=== PATIENT | female | born 1950 | race Caucasian/White ===

== ENCOUNTER 2024-04-26 12:58 | Observation (INO) | payer MEDICARE ==
[2024-04-26] MEDS: PANTOPRAZOLE 40 MG/10 ML VIAL IVP STA (14:24)
[2024-04-26] MEDS: ONDANSETRON 4 MG/2 ML VIAL IVP STA (14:31)
[2024-04-26] MEDS: HYDROmorphone 0.5 MG/0.5 ML SYRINGE IVP STA (14:37)
[2024-04-26 14:38] LABS: Basophils % (A) 0 %; Eosinophils # (A) 0.1 k/uL (0-0.7); Eosinophils % (A) 1 %; HCT 42.6 % (34.0-46.0); HGB 14.5 gm/dL (11.4-16.0); Lymphocytes # (A) 1.5 k/uL (1.0-4.8); Lymphocytes % (A) 15 %; MCH 30.9 pg (25.0-35.0); MCHC 34.1 g/dL (31.0-37.0); MCV 90.6 fL (80.0-100.0); Mean Platelet Volume 9.9; Monocytes # (A) 0.5 k/uL (0-1.0); Monocytes % (A) 5 %; Neutrophils # (A) 7.4 k/uL (1.3-7.7); Neutrophils % (A) 77 %; Platelet Count 268 k/uL (150-450); RDW 13.2 % (11.5-15.5); WBC 9.6 k/uL (3.8-10.6)
[2024-04-26 14:39] LABS: ALT 28 U/L (4-34); African American GFR (CKD) >90 (>60 ml/min/1.73 sqM); Amylase 84 U/L (30-110); Anion Gap 12 mmol/L; Blood Urea Nitrogen 13 mg/dL (7-17); Calcium 9.7 mg/dL (8.4-10.2); Carbon Dioxide 21 mmol/L (22-30); Chloride 103 mmol/L (98-107); Glucose 109 mg/dL (74-99); Lipase 75 U/L (23-300); Non-African American GFR(CKD) 88 (>60 ml/min/1.73 sqM); Sodium 136 mmol/L (137-145); Total Bilirubin 0.9 mg/dL (0.2-1.3); Total Protein 8.9 g/dL (6.3-8.2)
[2024-04-26 14:40] LABS: INR 0.9 (<1.2); Prothrombin Time 10.2 sec (10.0-12.5)
[2024-04-26] MEDS: SODIUM CHLORIDE 0.9% 1,000 ML IV STA ×2 (14:44→15:57)
[2024-04-26] MEDS: SODIUM CHLORIDE 0.9% 500 ML 500 ML IV STA (14:44)
[2024-04-26 14:45] LABS: AST 32 U/L (14-36); Potassium 4.3 mmol/L (3.5-5.1)
[2024-04-26 14:46] LABS: Alkaline Phosphatase 97 U/L (38-126)
--- NOTE | 2024-04-26 16:06 | US ---
EXAMINATION TYPE: US gallbladder DATE OF EXAM: 04/26/2024 COMPARISON: EXAMINATION TYPE: US gallbladder DATE OF EXAM: 04/26/2024 COMPARISON: 04/19/2024. CLINICAL INDICATION: Female, 73 years old with history of pain; Gallstones pain and vomiting. TECHNIQUE: Multiple sonographic images of the right upper quadrant are obtained. FINDINGS: EXAM MEASUREMENTS: Liver Length: 15.3 cm Gallbladder Wall: .5 cm CBD: .6 cm Right Kidney: 9.0 x 4.4 x 3.7 cm PIPE RACKER NOTES: Pancreas: Obscured by bowel gas Liver: Increased attenuation Gallbladder: Multiple stones seen appears upper limits 10 cm./Biliary sludge superimposed biliary sl udge present. The gallbladder wall is borderline enlarged measuring up to 5 mm . Evidence for sonographic Ramon's sign: no CBD: upper limits Right Kidney: No hydronephrosis or masses seen IMPRESSION: Cholelithiasis with prominent collateral bladder wall. Correlate for signs and symptoms of cholecysti tis.
--- NOTE | 2024-04-26 16:10 | ED ---
Abdominal Pain HPI - General Chief Complaint: Abdominal Pain Stated Complaint: Abd pain,vomiting Time Seen by Provider: 04/26/24 13:28 Source: patient, RN notes reviewed, old records reviewed Mode of arrival: ambulatory Limitations: no limitations - History of Present Illness Initial Comments: This 73-year-old female to the ER today. This patient presents today for evaluation regards to severe abdominal pain epigastric abdominal pain with known history of gallstones. Patient feels like she is having a gallbladder attack with severe nausea vomiting and pain. No fevers no other complaints she is alert has elective gallbladder surgery scheduled for July Complaint: abdominal pain -: days(s) Location: RUQ Radiation: RUQ Migration to: RUQ, epigastric Severity: severe Severity scale (1-10): 8 Quality: aching Consistency: constant, intermittent Improves With: nothing Worsens With: nothing Associated Symptoms: nausea Treatments Prior to Arrival: other (0) - Related Data Home Medications Medication Instructions Recorded Confirmed Aspirin EC [Ecotrin Low Dose] 81 mg PO HS 04/26/24 04/26/24 Levothyroxine Sodium [Synthroid] 75 mcg PO DAILY 04/26/24 04/26/24 Nitroglycerin Sl Tabs [Nitrostat] 0.4 mg SL Q5M PRN 04/26/24 04/26/24 Rosuvastatin [Crestor] 20 mg PO HS 04/26/24 04/26/24 Allergies Allergy/AdvReac Type Severity Reaction Status Date / Time strawberry Allergy Anaphylaxis Verified 04/26/24 15:59 Review of Systems ROS Statement: Those systems with pertinent positive or pertinent negative responses have been documented in the HPI. ROS Other: All systems not noted in ROS Statement are negative. Past Medical History Past Medical History: Coronary Artery Disease (CAD), Hyperlipidemia, Hypertension, Myocardial Infarction ([place]) Additional Past Medical History / Comment(s): gall stones Past Surgical History: Heart Catheterization With Stent Smoking Status: Current every day smoker General Exam Limitations: no limitations General appearance: alert, in no apparent distress Head exam: Present: atraumatic, normocephalic, normal inspection Eye exam: Present: normal appearance, PERRL, EOMI. Absent: scleral icterus, conjunctival injection, periorbital swelling ENT exam: Present: normal exam, mucous membranes moist Neck exam: Present: normal inspection. Absent: tenderness, meningismus, lymphadenopathy Respiratory exam: Present: normal lung sounds bilaterally. Absent: respiratory distress, wheezes, rales, rhonchi, stridor Cardiovascular Exam: Present: regular rate, normal rhythm, normal heart sounds. Absent: systolic murmur, diastolic murmur, rubs, gallop, clicks GI/Abdominal exam: Present: soft, normal bowel sounds. Absent: distended, tenderness, guarding, rebound, rigid Extremities exam: Present: normal inspection, full ROM, normal capillary refill. Absent: tenderness, pedal edema, joint swelling, calf tenderness Back exam: Present: normal inspection Neurological exam: Present: alert, oriented X3, CN II-XII intact Psychiatric exam: Present: normal affect, normal mood Skin exam: Present: warm, dry, intact, normal color. Absent: rash Course Vital Signs 04/26/24 13:22 Temperature 98.3 F Pulse Rate 83 Respiratory 16 Rate Blood Pressure 149/82 O2 Sat by Pulse 98 Oximetry - Reevaluation(s) Reevaluation #1: 04/26/24 16:29 Records reviewed Reevaluation #2: 04/26/24 16:29 Records improved same symptoms improved patient symptoms relatively Reevaluation #3: 04/26/24 16:30 Patient informed of results and questions answered Reevaluation #4: Was pt. sent in by a medical professional or institution (, PA, FIELD INSPECTOR, urgent care, hospital, or care home...) When possible be specific @ -no Did you speak to anyone other than the patient for history (EMS, parent, family, police, friend...)? What history was obtained from this source @ -no Did you review nursing and triage notes (agree or disagree)? Why? @ -agree Are old charts reviewed (outside hosp., previous admission, EMS record, old EKG, old radiological studies, urgent care reports/EKG's, care home records)? Report findings @ -yes Differential Diagnosis (chest pain, altered mental status, abdominal pain women, abdominal pain men, vaginal bleeding, weakness, fever, dyspnea, syncope, headache, dizziness, GI bleed, back pain, seizure, CVA, palpatations, mental health, musculoskeletal)? @ -prior EKG interpreted by me (3pts min.). @ -yes X-rays interpreted by me (1pt min.). @ -yes negative for acute disease CT interpreted by me (1pt min.). @ -no U/S interpreted by me (1pt. min.). @ -no What testing was considered but not performed or refused? (CT, X-rays, U/S, labs)? Why? @ -none What meds were considered but not given or refused? Why? @ -none Did you discuss the management of the patient with other professionals (professionals i.e. , PA, FIELD INSPECTOR, lab, RT, psych nurse, social director, performance improvement coordinator, teacher, military source operations officer, case mgr)? Give summary @ -no Was smoking cessation discussed for >3mins.? @ -no Were there social determinants of health that impacted care today? How? (Homelessness, low income, unemployed, alcoholism, drug addiction, transportation, low edu. Level, literacy, decrease access to med. care, skilled nursing, rehab)? @ -none Was there de-escalation of care discussed even if they declined (Discuss DNR or withdrawal of care, Hospice)? DNR status @ -no What co-morbidities impacted this encounter? (DM, HTN, Smoking, COPD, CAD, Cancer, CVA, ARF, Chemo, Hep., AIDS, mental health diagnosis, sleep apnea, morbid obesity)? @ -none Was patient admitted / discharged? Hospital course, mention meds given and route, prescriptions, significant lab abnormalities, going to OR and other pertinent info. @ - Was critical care preformed (if so, how long)? @ -no Undiagnosed new problem with uncertain prognosis? @ -no Drug Therapy requiring intensive monitoring for toxicity (Heparin, Nitro, Insulin, Cardizem)? @ -no Were any procedures done? @ -no Diagnosis/symptom? @ - Acute, or Chronic, or Acute on Chronic? @ -Acute Uncomplicated (without systemic symptoms) or Complicated (systemic symptoms)? @ -Complicated Side effects of treatment? @ -no Exacerbation, Progression, or Severe Exacerbation? @ -exacerbation Poses a threat to life or bodily function? How? (Chest pain, [place], [place], pneumonia, PE, COPD, DKA, ARF, appy, cholecystitis, CVA, Diverticulitis, Homicidal, Suic idal, threat to staff... and all critical care pts) @ -yes Reevaluation #5: Differential Abdominal Pain Women: Appendicitis, Cholecystitis, diverticulosis, ischemic bowel, pancreatitis, hepatitis, UTI, gastroenteritis, AAA, incarcerated hernia, bowel obstruction, constipation, inflammatory bowel, hepatitis, peptic ulcer disease, splenic infarction, perforated viscus, vulvitis, ovarian torsion, PID, kidney stone, placenta abruption, this is not meant to be an all-inclusive list - Consultations Consultation #1: Spoke with Dr. Farnsworth who will admit this patient Medical Decision Making - Medical Decision Making 73 female to the ER for evaluation abdominal pain gallbladder disease cholecystitis. Patient admitted for surgical evaluation and treatment - Lab Data Result diagrams: 04/26/24 14:08 04/26/24 14:08 Lab Results 04/26/24 04/26/24 04/26/24 Range/Units 14:08 14:08 14:08 WBC 9.6 (3.8-10.6) k/uL RBC 4.70 (3.80-5.40) m/uL Hgb 14.5 (11.4-16.0) gm/dL Hct 42.6 (34.0-46.0) % MCV 90.6 (80.0-100.0) fL MCH 30.9 (25.0-35.0) pg MCHC 34.1 (31.0-37.0) g/dL RDW 13.2 (11.5-15.5) % Plt Count 268 (150-450) k/uL MPV 9.9 Neutrophils % 77 % Lymphocytes % 15 % Monocytes % 5 % Eosinophils % 1 % Basophils % 0 % Neutrophils # 7.4 (1.3-7.7) k/uL Lymphocytes # 1.5 (1.0-4.8) k/uL Monocytes # 0.5 (0-1.0) k/uL Eosinophils # 0.1 (0-0.7) k/uL Basophils # 0.0 (0-0.2) k/uL PT 10.2 (10.0-12.5) sec INR 0.9 (<1.2) APTT 25.0 (22.0-30.0) sec Sodium (137-145) mmol/L Potassium (3.5-5.1) mmol/L Chloride (98-107) mmol/L Carbon Dioxide (22-30) mmol/L Anion Gap mmol/L BUN (7-17) mg/dL Creatinine (0.52-1.04) mg/dL Est GFR (CKD-EPI)AfAm (>60 ml/min/1.73 sqM) Est GFR (CKD-EPI)NonAf (>60 ml/min/1.73 sqM) Glucose (74-99) mg/dL Plasma Lactic Acid Maverick (0.7-2.0) mmol/L Calcium (8.4-10.2) mg/dL Total Bilirubin (0.2-1.3) mg/dL AST (14-36) U/L ALT (4-34) U/L Alkaline Phosphatase (38-126) U/L Troponin I (0.000-0.034) ng/mL Total Protein (6.3-8.2) g/dL Albumin (3.5-5.0) g/dL Amylase (30-110) U/L Lipase (23-300) U/L Urine Color Colorless Urine Appearance Clear (Clear) Urine pH 6.0 (5.0-8.0) Ur Specific [place] 1.006 (1.001-1.035) Urine Protein 1+ H (Negative) Urine Glucose (UA) Negative (Negative) Urine Ketones Trace H (Negative) Urine Blood Negative (Negative) Urine Nitrite Negative (Negative) Urine Bilirubin Negative (Negative) Urine Urobilinogen <2.0 (<2.0) mg/dL Ur Leukocyte Esterase Negative (Negative) Urine RBC 1 (0-5) /hpf Urine WBC 2 (0-5) /hpf Ur Squamous Epith Cells <1 (0-4) /hpf Urine Mucus Few H (None) /hpf 04/26/24 04/26/24 04/26/24 Range/Units 14:08 14:08 14:08 WBC (3.8-10.6) k/uL RBC (3.80-5.40) m/uL Hgb (11.4-16.0) gm/dL Hct (34.0-46.0) % MCV (80.0-100.0) fL MCH (25.0-35.0) pg MCHC (31.0-37.0) g/dL RDW (11.5-15.5) % Plt Count (150-450) k/uL MPV Neutrophils % % Lymphocytes % % Monocytes % % Eosinophils % % Basophils % % Neutrophils # (1.3-7.7) k/uL Lymphocytes # (1.0-4.8) k/uL Monocytes # (0-1.0) k/uL Eosinophils # (0-0.7) k/uL Basophils # (0-0.2) k/uL PT (10.0-12.5) sec INR (<1.2) APTT (22.0-30.0) sec Sodium 136 L (137-145) mmol/L Potassium 4.3 (3.5-5.1) mmol/L Chloride 103 (98-107) mmol/L Carbon Dioxide 21 L (22-30) mmol/L Anion Gap 12 mmol/L BUN 13 (7-17) mg/dL Creatinine 0.68 (0.52-1.04) mg/dL Est GFR (CKD-EPI)AfAm >90 (>60 ml/min/1.73 sqM) Est GFR (CKD-EPI)NonAf 88 (>60 ml/min/1.73 sqM) Glucose 109 H (74-99) mg/dL Plasma Lactic Acid Maverick 1.1 (0.7-2.0) mmol/L Calcium 9.7 (8.4-10.2) mg/dL Total Bilirubin 0.9 (0.2-1.3) mg/dL AST 32 (14-36) U/L ALT 28 (4-34) U/L Alkaline Phosphatase 97 (38-126) U/L Troponin I 0.072 H* (0.000-0.034) ng/mL Total Protein 8.9 H (6.3-8.2) g/dL Albumin 5.0 (3.5-5.0) g/dL Amylase 84 (30-110) U/L Lipase 75 (23-300) U/L Urine Color Urine Appearance (Clear) Urine pH (5.0-8.0) Ur Specific [place] (1.001-1.035) Urine Protein (Negative) Urine Glucose (UA) (Negative) Urine Ketones (Negative) Urine Blood (Negative) Urine Nitrite (Negative) Urine Bilirubin (Negative) Urine Urobilinogen (<2.0) mg/dL Ur Leukocyte Esterase (Negative) Urine RBC (0-5) /hpf Urine WBC (0-5) /hpf Ur Squamous Epith Cells (0-4) /hpf Urine Mucus (None) /hpf - Radiology Data Radiology results: report reviewed (US gallbladder is postiive for cholecystitis), image reviewed Disposition Clinical Impression: Abdominal pain, Acute cholecystitis Disposition: ADMITTED IP TO THIS HOSP Condition: Fair Is patient prescribed a controlled substance at d/c from ED?: No Referrals: Celestine Roman DO [Primary Care Provider] - 1-2 days Time of Disposition: 16:30
[2024-04-26 16:12] LABS: Appearance,Urine Clear (Clear); Bilirubin,Urine Negative (Negative); Blood,Urine Negative (Negative); Color,Urine Colorless; Glucose,Urine (UA) Negative (Negative); Ketones,Urine Trace (Negative); Leukocyte Esterase,Urine Negative (Negative); Mucus,Urine Few /hpf; Nitrite,Urine Negative (Negative); Protein,Urine 1+ (Negative); RBC,Urine 1 /hpf (0-5); Specific Gravity,Urine 1.006 (1.001-1.035); Squamous Epithelial Cell,Urine <1 /hpf (0-4); Urobilinogen,Urine <2.0 mg/dL (<2.0); WBC,Urine 2 /hpf (0-5)
[2024-04-26] MEDS ORDERED: NALOXONE 0.4 MG/ML 1 ML VIAL IV PRN (16:34)
[2024-04-26] MEDS: AMPICILLIN-SULBACTAM 3 GM in SODIUM CHLORIDE 0.9% 100 ML IVPB STA (18:08)
[2024-04-26] MEDS: SODIUM CHLORIDE 0.9% 1,000 ML IV SCH (18:10)
[2024-04-26] MEDS: HYDROmorphone 0.5 MG/0.5 ML SYRINGE IVP PRN (18:34)
[2024-04-27] MEDS: AMPICILLIN-SULBACTAM 3 GM in SODIUM CHLORIDE 0.9% 100 ML IVPB SCH ×2 (02:54→11:07)
[2024-04-27 10:02] LABS: Basophils % (A) 1 %; Eosinophils # (A) 0.2 k/uL (0-0.7); Eosinophils % (A) 3 %; HGB 12.4 gm/dL (11.4-16.0); Lymphocytes % (A) 33 %; MCHC 31.8 g/dL (31.0-37.0); MCV 94.3 fL (80.0-100.0); Mean Platelet Volume 10.1; Monocytes # (A) 0.5 k/uL (0-1.0); Monocytes % (A) 8 %; Neutrophils # (A) 3.3 k/uL (1.3-7.7); Neutrophils % (A) 53 %; Platelet Count 214 k/uL (150-450); RBC 4.14 m/uL (3.80-5.40); RDW 13.4 % (11.5-15.5); WBC 6.1 k/uL (3.8-10.6)
[2024-04-27 10:18] LABS: ALT 19 U/L (4-34); AST 25 U/L (14-36); African American GFR (CKD) >90 (>60 ml/min/1.73 sqM); Albumin 3.7 g/dL (3.5-5.0); Alkaline Phosphatase 73 U/L (38-126); Anion Gap 4 mmol/L; Blood Urea Nitrogen 9 mg/dL (7-17); Calcium 8.8 mg/dL (8.4-10.2); Carbon Dioxide 24 mmol/L (22-30); Chloride 110 mmol/L (98-107); Glucose 87 mg/dL (74-99); Magnesium 1.7 mg/dL (1.6-2.3); Non-African American GFR(CKD) >90 (>60 ml/min/1.73 sqM); Phosphorus 2.7 mg/dL (2.5-4.5); Potassium 4.3 mmol/L (3.5-5.1); Sodium 138 mmol/L (137-145); Total Protein 6.8 g/dL (6.3-8.2)
--- NOTE | 2024-04-27 12:11 | P.GSHP ---
History of Present Illness H&P Date: 04/27/24 CHIEF COMPLAINT: Abdominal pain HISTORY OF PRESENT ILLNESS: This is a 73-year-old female who presented to the hospital with complaints of right upper quadrant epigastric abdominal pain that started last night. Patient reports that after dinner last night which she had turkey burgers. About an hour later around 5 PM she started to have abdominal pain. The pain did not go away. She was having nausea and vomiting. She has known history of gallstones. She reports being in the ER 2 days ago with similar pain and was discharged home. Patient denies any fever chills or sweats. Denies any chest pain or shortness of breath. She does have a known history of coronary artery disease with cardiac stents and [place] 2 years ago. Patient had reported that she is scheduled for elective gallbladder surgery in July. She had ultrasound completed that did show gallstones and a prominen t gallbladder wall. Patient denies being on blood thinners. Denies any prior abdominal surgeries. PAST MEDICAL HISTORY: See below PAST SURGICAL HISTORY: See below MEDICATIONS: See below ALLERGIES: See below SOCIAL HISTORY: No illicit drug use. REVIEW OF SYSTEMS: CONSTITUTIONAL: Denies fever or chills. HEENT: Denies blurred vision, vision changes, or eye pain. Denies hemoptysis CARDIOVASCULAR: Denies chest pain or pressure. RESPIRATORY: No shortness of breath. GASTROINTESTINAL: See HPI for pertinent findings HEMATOLOGIC: Denies bleeding disorders. GENITOURINARY: Denies any blood in urine or increased urinary frequency. SKIN: Denies pruitis. Denies rash. PHYSICAL EXAM: VITAL SIGNS: Reviewed GENERAL: Well-developed in no acute distress. HEENT: No sclera icterus. Extraocular movements grossly intact. Moist buccal mucosa. Head is atraumatic, normocephalic. No nasal drainage. ABDOMEN: Soft. Nondistended. Tenderness to palpation to the right upper quadr ant NEUROLOGIC: Alert and oriented. Cranial nerves II through XII grossly intact. LABORATORY DATA: WBC 6.1 Hgb 12.4 platelets 214 Sodium is 138 potassium 4.3 creatinine 0.64 Troponin is within normal range Troponins mildly elevated 0.07-0.059 IMAGING: Gallbladder ultrasound reports cholelithiasis with prominent gallbladder wall. Correlate for signs and symptoms of cholecystitis ASSESSMENT: 1. Acute cholecystitis with cholelithiasis 2. Mildly elevated troponins with history of coronary disease with cardiac stent PLAN: -Consult placed for cardiology for elevated troponin and cardiac risk assessment for surgery -Patient scheduled for laparoscopic cholecystectomy today with Dr. Farnsworth -Continue IV antibiotics -Continue supportive care -Keep patient n.p.o. Physician Rn Nicu note has been reviewed by physician. Signing provider agrees with the documented findings, assessment, and plan of care. I have personally seen and examined the patient, reviewed the BAR HOST/HOSTESS /PAs history, exam and MDM and agree with the assessment and plan as written. Based on total visit time, I have performed more than 50% of the visit. As above: Patient presents with right upper quadrant pain. Physical exam findings, history, diagnostics all consistent with acute calculus cholecystitis. Clinical scenario discussed with patient and . Will proceed with laparoscopic, possible open cholecystectomy at this time. Continue antibiotics. Risks of bleeding, infection, bile leak, bile duct injury, retained common bile duct stone, trocar injury, conversion to an open procedure, hernia, anesthesia related complications were reviewed. The patient understands and wishes to proceed. Past Medical History Past Medical History: Coronary Artery Disease (CAD), Hyperlipidemia, Hypertension, Myocardial Infarction ([place]) Additional Past Medical History / Comment(s): gall stones Past Surgical History: Heart Catheterization With Stent Smoking Status: Current every day smoker Medications and Allergies Home Medications Medication Instructions Recorded Confirmed Type Aspirin EC [Ecotrin Low Dose] 81 mg PO HS 04/26/24 04/26/24 History Levothyroxine Sodium [Synthroid] 75 mcg PO DAILY 04/26/24 04/26/24 History Nitroglycerin Sl Tabs [Nitrostat] 0.4 mg SL Q5M PRN 04/26/24 04/26/24 History Rosuvastatin [Crestor] 20 mg PO HS 04/26/24 04/26/24 History Allergies Allergy/AdvReac Type Severity Reaction Status Date / Time strawberry Allergy Anaphylaxis Verified 04/26/24 15:59 Surgical - Exam Vital Signs Temp Pulse Resp BP Pulse Ox 98.3 F 83 16 149/82 98 04/26/24 13:22 04/26/24 13:22 04/26/24 13:22 04/26/24 13:22 04/26/24 13:22 Results - Labs 04/27/24 09:06 04/27/24 09:06 Abnormal Lab Results - Last 24 Hours (Table) 04/26/24 04/26/24 04/26/24 Range/Units 14:08 14:08 14:08 Sodium 136 L (137-145) mmol/L Chloride (98-107) mmol/L Carbon Dioxide 21 L (22-30) mmol/L Glucose 109 H (74-99) mg/dL Troponin I 0.072 H* (0.000-0.034) ng/mL Total Protein 8.9 H (6.3-8.2) g/dL Urine Protein 1+ H (Negative) Urine Ketones Trace H (Negative) Urine Mucus Few H (None) /hpf 04/26/24 04/27/24 Range/Units 17:04 09:06 Sodium (137-145) mmol/L Chloride 110 H (98-107) mmol/L Carbon Dioxide (22-30) mmol/L Glucose (74-99) mg/dL Troponin I 0.059 H* (0.000-0.034) ng/mL Total Protein (6.3-8.2) g/dL Urine Protein (Negative) Urine Ketones (Negative) Urine Mucus (None) /hpf Diabetes panel 04/26/24 04/27/24 Range/Units 14:08 09:06 Sodium 136 L 138 (137-145) mmol/L Potassium 4.3 4.3 (3.5-5.1) mmol/L Chloride 103 110 H (98-107) mmol/L Carbon Dioxide 21 L 24 (22-30) mmol/L BUN 13 9 (7-17) mg/dL Creatinine 0.68 0.64 (0.52-1.04) mg/dL Glucose 109 H 87 (74-99) mg/dL Calcium 9.7 8.8 (8.4-10.2) mg/dL AST 32 25 (14-36) U/L ALT 28 19 (4-34) U/L Alkaline Phosphatase 97 73 (38-126) U/L Total Protein 8.9 H 6.8 (6.3-8.2) g/dL Albumin 5.0 3.7 (3.5-5.0) g/dL Calcium panel 04/26/24 04/27/24 Range/Units 14:08 09:06 Calcium 9.7 8.8 (8.4-10.2) mg/dL Phosphorus 2.7 (2.5-4.5) mg/dL Albumin 5.0 3.7 (3.5-5.0) g/dL Pituitary panel 04/26/24 04/27/24 Range/Units 14:08 09:06 Sodium 136 L 138 (137-145) mmol/L Potassium 4.3 4.3 (3.5-5.1) mmol/L Chloride 103 110 H (98-107) mmol/L Carbon Dioxide 21 L 24 (22-30) mmol/L BUN 13 9 (7-17) mg/dL Creatinine 0.68 0.64 (0.52-1.04) mg/dL Glucose 109 H 87 (74-99) mg/dL Calcium 9.7 8.8 (8.4-10.2) mg/dL Adrenal panel 04/26/24 04/27/24 Range/Units 14:08 09:06 Sodium 136 L 138 (137-145) mmol/L Potassium 4.3 4.3 (3.5-5.1) mmol/L Chloride 103 110 H (98-107) mmol/L Carbon Dioxide 21 L 24 (22-30) mmol/L BUN 13 9 (7-17) mg/dL Creatinine 0.68 0.64 (0.52-1.04) mg/dL Glucose 109 H 87 (74-99) mg/dL Calcium 9.7 8.8 (8.4-10.2) mg/dL Total Bilirubin 0.9 1.0 (0.2-1.3) mg/dL AST 32 25 (14-36) U/L ALT 28 19 (4-34) U/L Alkaline Phosphatase 97 73 (38-126) U/L Total Protein 8.9 H 6.8 (6.3-8.2) g/dL Albumin 5.0 3.7 (3.5-5.0) g/dL
--- NOTE | 2024-04-27 14:17 | P.CRDCN ---
History of Present Illness Consult date: 04/27/24 Reason for Consult (text): Elevated troponins and cardiac clearance for lap cholecystectomy History of present illness: This is a 73-year-old female follows with a director of retail outside of the area with past medical history of coronary artery disease and previous stent, hyperlipidemia, hypothyroidism. We have been asked to evaluate the patient for elevated troponins and cardiac clearance for lap cholecystectomy. Patient presented to the hospital due to abdominal pain in the right upper quadrant laterally. She denies having any chest pain or shortness of breath. She states that she has not been sleeping for the past 2 weeks due to pain. She does have a history of NM 2 years ago and was treated in [place] underwent stent. She follows with a director of retail and [place] and her last stress test was about 1 year ago. Patient is scheduled for laparoscopic cholecystectomy this afternoon. EKG: Sinus rhythm with no acute ST changes. Laboratory studies: CBC unremarkable, creatinine 0.64, potassium 4.3, magnesium 1.7. Troponin 0.072 and 0.059. Gallbladder ultrasound reveals cholelithiasis with prominence of the collateral bladder wall. Home cardiac medications: Aspirin 81 mg daily, Nitrostat as needed, Crestor 20 mg at bedtime, also on levothyroxine 75 mcg daily. Review Of Systems: At the time of my exam: CONSTITUTIONAL: Denies fever or chills. HEENT: Denies blurred vision, vision changes, or eye pain. Denies hemoptysis CARDIOVASCULAR: Denies chest pain. Denies orthopnea. Denies PND. Denies palpitations RESPIRATORY: Denies shortness of breath. GASTROINTESTINAL: Reports right upper quadrant abdominal pain. Denies nausea or vomiting. HEMATOLOGIC: Denies bleeding disorders. GENITOURINARY: Denies any blood in urine. SKIN: Denies puritis. Denies rash. Physical examination: Gen: This is a 73-year-old female in no acute distress VS: reviewed HEENT: Head is atraumatic, normocephalic. Pupils equal, round. Sclerae is an icteric. NECK: Supple. No JVD. LUNGS: Clear to auscultation. No wheezes or rhonchi. No intercostal retractions. HEART: Regular rate and rhythm. No murmur. ABDOMEN: Soft RUQ tenderness. EXTREMITIES: No pedal edema. No calf tenderness. NEUROLOGICAL: Patient is awake, alert and oriented x3. Assessment: Elevated troponin with evidence of myocardial injury without ischemia as patient has no chest pain and there are no EKG changes. Cholecystitis scheduled for laparoscopic cholecystectomy History of coronary artery disease with PCI x 1 in the setting of NM Hyperlipidemia Plan: Resume patient's home cardiac medications Patient may proceed with the surgery as planned and we will consider cardiac workup following surgery Obtain 2-D echocardiogram and Doppler study to assess cardiac structure and function Further recommendations to follow based upon clinical course Thank you kindly for this consultation. Nurse practitioner note has been reviewed, I agree with documented findings and plan of care. Patient was seen and examined. Past Medical History Past Medical History: Coronary Artery Disease (CAD), Hyperlipidemia, Hypertension, Myocardial Infarction (NM) Additional Past Medical History / Comment(s): gall stones Past Surgical History: Heart Catheterization With Stent Smoking Status: Current every day smoker Medications and Allergies Home Medications Medication Instructions Recorded Confirmed Type Aspirin EC [Ecotrin Low Dose] 81 mg PO HS 04/26/24 04/26/24 History Levothyroxine Sodium [Synthroid] 75 mcg PO DAILY 04/26/24 04/26/24 History Nitroglycerin Sl Tabs [Nitrostat] 0.4 mg SL Q5M PRN 04/26/24 04/26/24 History Rosuvastatin [Crestor] 20 mg PO HS 04/26/24 04/26/24 History Allergies Allergy/AdvReac Type Severity Reaction Status Date / Time strawberry Allergy Anaphylaxis Verified 04/26/24 15:59 Physical Exam Vitals: Vital Signs Temp Pulse Pulse Resp BP Pulse Ox 04/27/24 11:00 76 18 152/72 94 L 04/27/24 08:01 81 16 130/64 130 H 04/27/24 08:00 80 16 04/27/24 06:10 77 16 136/69 100 04/27/24 03:00 78 18 146/70 98 04/27/24 00:00 80 16 142/68 98 04/26/24 21:35 75 18 153/71 98 04/26/24 18:15 97.7 F 78 15 150/64 94 L 04/26/24 16:28 98.1 F 79 15 133/67 96 Intake and Output 04/26/24 04/27/24 04/27/24 22:59 06:59 14:59 Other: Voiding Method Toilet Results 04/27/24 09:06 04/27/24 09:06 Cardiac Enzymes 04/26/24 04/26/24 04/26/24 Range/Units 14:08 14:08 17:04 AST 32 (14-36) U/L Troponin I 0.072 H* 0.059 H* (0.000-0.034) ng/mL 04/27/24 Range/Units 09:06 AST 25 (14-36) U/L Troponin I (0.000-0.034) ng/mL Coagulation 04/26/24 Range/Units 14:08 PT 10.2 (10.0-12.5) sec APTT 25.0 (22.0-30.0) sec CBC 04/26/24 04/27/24 Range/Units 14:08 09:06 WBC 9.6 6.1 (3.8-10.6) k/uL RBC 4.70 4.14 (3.80-5.40) m/uL Hgb 14.5 12.4 (11.4-16.0) gm/dL Hct 42.6 39.0 (34.0-46.0) % Plt Count 268 214 (150-450) k/uL Comprehensive Metabolic Panel 04/26/24 04/27/24 Range/Units 14:08 09:06 Sodium 136 L 138 (137-145) mmol/L Potassium 4.3 4.3 (3.5-5.1) mmol/L Chloride 103 110 H (98-107) mmol/L Carbon Dioxide 21 L 24 (22-30) mmol/L BUN 13 9 (7-17) mg/dL Creatinine 0.68 0.64 (0.52-1.04) mg/dL Glucose 109 H 87 (74-99) mg/dL Calcium 9.7 8.8 (8.4-10.2) mg/dL AST 32 25 (14-36) U/L ALT 28 19 (4-34) U/L Alkaline Phosphatase 97 73 (38-126) U/L Total Protein 8.9 H 6.8 (6.3-8.2) g/dL Albumin 5.0 3.7 (3.5-5.0) g/dL Current Medications Generic Name Dose Route Start Last Admin Trade Name Freq PRN Reason Stop Dose Admin Hydromorphone HCl 0.5 mg 04/26/24 16:34 04/26/24 18:34 Hydromorphone 0.5 Mg/0.5 Ml Syringe IVP 0.5 mg Q3HR PRN Administration Moderate Pain (Scale 4 to 6) Sodium Chloride 1,000 mls @ 75 mls/hr 04/26/24 16:45 04/27/24 06:08 Saline 0.9% IV 75 mls/hr .[id number] MARIE Administration Ampicillin Sodium/Sulbactam 100 mls @ 200 mls/hr 04/27/24 12:00 04/27/24 11:07 Sodium 3 gm/ Sodium Chloride IVPB 200 mls/hr Q8H MARIE Administration Protocol Naloxone HCl 0.2 mg 04/26/24 16:34 Naloxone 0.4 Mg/Ml 1 Ml Vial IV Q2M PRN Opioid Reversal Ondansetron HCl 4 mg 04/26/24 16:34 Ondansetron 4 Mg/2 Ml Vial IVP Q8HR PRN Nausea And Vomiting Intake and Output 04/26/24 04/27/24 04/27/24 22:59 06:59 14:59 Other: Voiding Method Toilet 04/27/24 09:06 04/27/24 09:06
[2024-04-27] MEDS: IV FLUID CONTINUATION 1,000 ML IV ONE (15:02)
[2024-04-27] MEDS: ONDANSETRON 4 MG/2 ML VIAL IVP PRN (15:11)
[2024-04-27] MEDS: HEPARIN SODIUM,PORCINE 5,000 UNIT/ML 1 ML VIAL SQ ONE (15:58)
[2024-04-27] MEDS ORDERED: ROCURONIUM 10 MG/ML (5 ML VIAL) IV ONE (16:40)
[2024-04-27] MEDS ORDERED: LIDOCAINE 1% INJ 10MG/ML (20 ML MDV) ONE (16:40)
[2024-04-27] MEDS ORDERED: PROPOFOL 10 MG/ML 20 ML VIAL IV ONE (16:40)
[2024-04-27] MEDS ORDERED: GLYCOPYRROLATE 0.2 MG/ML 2 ML VIAL ONE (16:40)
[2024-04-27] MEDS ORDERED: PHENYLEPHRINE 10 MG/ML VIAL ONE (16:40)
[2024-04-27] MEDS ORDERED: fentaNYL (PF) 50 MCG/ML 2 ML AMP ONE (16:40)
[2024-04-27] MEDS ORDERED: SUCCINYLCHOLINE CHLORIDE 200 MG/10 ML VIAL IV ONE (16:40)
[2024-04-27] MEDS ORDERED: NEOSTIGMINE 1 MG/ML 10 ML VIAL ONE (16:40)
[2024-04-27] MEDS ORDERED: MIDAZOLAM 2 MG/2 ML VIAL ONE (16:40)
[2024-04-27] MEDS: BUPIVACAINE (PF) 0.25% 30 ML VIAL SQ ONE ×2 (16:59)
[2024-04-27] MEDS: LACTATED RINGERS 1,000 ML IV ONE (17:32)
[2024-04-27] MEDS ORDERED: IBUPROFEN 400 MG TAB PO PRN (17:53)
[2024-04-27] MEDS ORDERED: ACETAMINOPHEN TAB 325 MG TAB PO PRN (17:53)
--- NOTE | 2024-04-27 17:59 | P.OP ---
Date of Procedure: 04/27/24 Procedure(s) Performed: PREOPERATIVE DIAGNOSIS: Acute calculus cholecystitis POSTOPERATIVE DIAGNOSIS: Same PROCEDURE: Laparoscopic cholecystectomy SURGEON: Javad EBL: Minimal see anesthesia record ANESTHESIA: Gen. COMPLICATIONS: None OPERATIVE PROCEDURE: The patient was brought and placed on the operating room table in the supine position. The patient was placed under general anesthesia at that time. The abdomen was prepped and draped in the usual sterile fashion. A small curvilinear supraumbilical incision was made. The patient had a small existing umbilical hernia mostly inferiorly. The fascia was grasped with the Naveen forceps. The fascia was retracted anteriorly. The Veress needle was ad vanced into the peritoneal cavity. The saline drop test was normal. Insufflation took place up to 15 mmHg. A 5 mm optical trocar was advanced and the peritoneal cavity. 2 additional 5 mm trochars were placed in the right upper quadrant under direct visualization. A 12 mm trocar was advanced into the epigastric incision site. The gallbladder was significantly distended with impressive edema and thickening of the gallbladder wall. An opening was made in the fundus and the bilious fluid that was cloudy in nature was evacuated. The gallbladder was retracted superiorly and laterally. The peritoneum overlying the infundibulum was bluntly dissected. The patient's cystic duct was visualized. The junction between the cystic duct common and hepatic duct was identified. There was noted to be a stone impacted in the infundibulum. The critical view of safety was achieved after blunt dissection. The cystic duct was then divided after placement of a 2-0 Ethibond stitch on the patient's side as well as a 12 mm clip. The cystic artery was identified and clipped as well. A small vessel was seen along the gallbladder fossa and clipped as well. The gallbladder was then removed from the liver bed using electrocautery. The gallbladder was then removed from the epigastric trocar site with an Endo Catch bag. The gallbladder fossa was irrigated with saline. There was no evidence of any bleeding or biliary drainage seen. The fascia at the 12 millimeter site was closed using a Tobias-Nga 0 Vicryl stitch. The trochars were then removed. The skin at all 4 sites was closed using a 4-0 Monocryl stitch. Skin glue was utilized on the incision sites. At the end of this procedure the sponge and needle counts were correct. DISPOSITION: Stable to the recovery room
[2024-04-27] MEDS: ENALAPRILAT 1.25 MG/ML 1 ML VIAL IVP STA (18:21)
[2024-04-27] MEDS: KETOROLAC 15 MG/ML 1 ML VIAL IVP SCH (18:47)
[2024-04-27] MEDS: HYDROcodone/APAP 5-325MG 1 EACH TAB PO PRN (22:05)
[2024-04-28] MEDS: LEVOTHYROXINE 75 MCG TAB PO SCH (06:15)
[2024-04-28] MEDS: PANTOPRAZOLE 40 MG/10 ML VIAL IVP SCH (08:49)
--- NOTE | 2024-04-28 10:55 | P.PN ---
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 She underwent cholecystectomy yesterday. April 28, 2024 The patient was seen and evaluated this morning. She is asymptomatic. She is hemodynamically stable. I am going to start the patient on aspirin and beta- gwen. Echo was ordered and still pending. The examination is remarkable for stable vital signs with regular rate and rhythm and clear breathing sounds bilaterally and no edema was noted Assessment Abdominal discomfort Cholecystitis status postcholecystectomy Evidence of myocardial injury Coronary artery disease Multiple comorbid conditions Plan Continue the current medical regimen Start the patient on aspirin and beta-gwen Obtain an echo Further recommendation to follow Objective - Vital Signs Vital signs: Vital Signs Temp 97.6 F 04/28/24 07:59 Pulse 68 04/28/24 07:59 Resp 15 04/28/24 07:59 BP 153/71 04/28/24 07:59 Pulse Ox 92 L 04/28/24 07:59 FiO2 Intake & Output 04/27/24 04/28/24 04/28/24 18:59 06:59 18:59 Intake Total 1750 Output Total 5 Balance 1745 Weight 82.9 kg Intake: IV 1750 Output: Estimated Blood Loss 5 Other: Voiding Method Toilet Toilet Toilet # Voids 1 - Labs CBC & Chem 7: 04/27/24 09:06 04/27/24 09:06
--- NOTE | 2024-04-28 11:15 | P.CONS ---
History of Present Illness - Reason for Consult Consult date: 04/28/24 - History of Present Illness Patient is a 73-year-old female with history of CAD status post stent to reversible, dyslipidemia, hypothyroidism presenting with right upper quadrant abdominal pain. Patient on arrival had vital signs within normal limits. CBC unremarkable, BMP showed bicarb of 21, anion gap 12, lactate 1.1, troponin 0.0 72 down trended to 0.059. Right upper quadrant ultrasound showed acute cho lecystitis. Patient taken for laparoscopic cholecystectomy. Cardiology also consulted for elevated troponin, unlikely to be ACS. Echocardiogram ordered. Patient currently denies any chest pain, shortness of breath, has not passed any gas, no bowel movements, denies any urinary complaints, nausea, vomiting, or shortness of breath. She has minor abdominal pain after the surgery. Sound physicians consulted for medical management. Patient remains on IV Unasyn. Pertinent positives and negatives as discussed in HPI, a complete review of systems was performed and all other systems are negative. Patient seen and examined at bedside. Vital signs reviewed General: nontoxic, no distress, appears at stated age Derm: warm, dry, incision sites clean, dry, intact Head: atraumatic, normocephalic, symmetric Eyes: EOMI, no lid lag, anicteric sclera, pupils equal round reactive to light ENT: Nose and ears atraumatic Neck: No thyromegaly, supple Mouth: no lip lesion, mucus membranes moist Cardiovascular: S1S2 reg, no murmur, no edema Lungs: clear to auscultation bilateral, no rhonchi, no rales, no wheeze, no accessory muscle use Abdominal: soft, nontender to palpation, no guarding, no appreciable organomegaly Ext: no gross muscle atrophy, muscle strength muscle strength 5 out of 5 in all 4 extremities, no contractures Neuro: CN II-XII grossly intact Psych: Alert, oriented, appropriate affect Assessment/Plan: Acute cholecystitis status post laparoscopic cholecystectomy -On IV Unasyn 3 g every 8 hours, continue -Pain control with oral tramadol as needed, oral Tylenol as needed, oral [place] as needed, IV Dilaudid as needed, monitor for sedation -Scheduled Toradol and ibuprofen discontinued given the history of coronary artery disease -Started on subcu heparin for DVT prophylaxis -Currently on low-fat diet -On IV Protonix 40 daily -CBC and BMP pending, will be reviewed when available Elevated troponin, ACS ruled out -Cardiology note reviewed, started patient on metoprolol 12.5 twice daily -With no active chest pain -Echocardiogram pending -Maintain patient on telemetry -Restarted home aspirin 81 mg, continue atorvastatin 40 mg Hypothyroidism -Continue levothyroxine 75 mcg daily Thank you for allowing us to participate in the care of this pleasant patient. Do not hesitate to contact us with questions. Someone can be reached from the [facility] hospitalist group all hours of the day at [phone] or via [employer]. Past Medical History Past Medical History: Coronary Artery Disease (CAD), Hyperlipidemia, Hypertension, Myocardial Infarction ([place]) Additional Past Medical History / Comment(s): gall stones Last Myocardial Infarction Date:: N/A History of Any Multi-Drug Resistant Organisms: Unobtainable Past Surgical History: Heart Catheterization With Stent, Orthopedic Surgery Additional Past Surgical History / Comment(s): right shoulder surgery Date of Last Stent Placement:: N/A Smoking Status: Current every day smoker Medications and Allergies Home Medications Medication Instructions Recorded Confirmed Type Aspirin EC [Ecotrin Low Dose] 81 mg PO HS 04/26/24 04/26/24 History Levothyroxine Sodium [Synthroid] 75 mcg PO DAILY 04/26/24 04/26/24 History Nitroglycerin Sl Tabs [Nitrostat] 0.4 mg SL Q5M PRN 04/26/24 04/26/24 History Rosuvastatin [Crestor] 20 mg PO HS 04/26/24 04/26/24 History HYDROcodone/APAP 5-325MG [[place] 1 tab PO Q6HR PRN 3 Days #10 tab 04/27/24 Rx 5-325] Allergies Allergy/AdvReac Type Severity Reaction Status Date / Time strawberry Allergy Anaphylaxis Verified 04/26/24 15:59 Physical Exam Vitals: Vital Signs Temp Pulse Pulse Pulse Resp BP BP 04/28/24 07:59 97.6 F 68 15 153/71 04/28/24 01:46 98.1 F 76 18 159/71 04/27/24 21:50 98 F 76 16 131/50 04/27/24 19:30 74 16 148/66 04/27/24 19:25 69 16 147/69 04/27/24 19:15 69 16 161/74 06/07/24 19:00 69 16 176/79 06/07/24 18:45 75 16 172/86 04/27/24 18:30 69 16 193/85 04/27/24 18:15 68 16 199/88 04/27/24 17:58 74 19 191/96 04/27/24 15:00 98.0 F 80 18 166/78 04/27/24 14:48 97.6 F 79 18 148/73 04/27/24 14:40 97.6 F 79 18 148/73 Pulse Ox 04/28/24 07:59 92 L 04/28/24 01:46 92 L 04/27/24 21:50 97 04/27/24 19:30 94 L 04/27/24 19:25 94 L 04/27/24 19:15 94 L 04/27/24 19:00 94 L 04/27/24 18:45 96 04/27/24 18:30 95 04/27/24 18:15 95 04/27/24 17:58 92 L 04/27/24 15:00 93 L 04/27/24 14:48 91 L 04/27/24 14:40 91 L Intake and Output 04/27/24 04/28/24 04/28/24 22:59 06:59 14:59 Intake Total 1750 Output Total 5 Balance 1745 Intake: IV 1750 Output: Estimated Blood Loss 5 Other: Voiding Method Toilet Toilet # Voids 1 Weight 77.111 kg 82.9 kg Results CBC & Chem 7: 04/27/24 09:06 04/27/24 09:06
[2024-04-28] MEDS: traMADol 50 MG TAB PO PRN (12:47)
[2024-04-28] MEDS: METOPROLOL TARTRATE 12.5 MG TAB PO SCH (12:48)
[2024-04-28 13:51] VITALS: BP 149/71; PULSE 64; RESP 16; TEMP 98.1
--- NOTE | 2024-04-28 14:56 | CA ---
Transthoracic Echo Report Name: Gilma Bailey Age: 73 Gender: F : 1950 Exam Date: 04/28/2024 09:03 Exam Location: [facility] Ht (in): 62 Wt (lb): 170 Ordering Physician: Sonam Harman Attending/Referring Phys: [id number], Ghazal Bin Packer Paris Bates RDCS Procedure CPT: Indications: LVF Cardiac Hx: Technical Quality: Fair Contrast 1: Total Dose (mL): Contrast 2: Total Dose (mL): MEASUREMENTS (Male / Female) Normal Values 2D ECHO LV Diastolic Diameter PLAX 4.3 cm 4.2 - 5.9 / 3.9 - 5.3 cm LV Systolic Diameter PLAX 2.6 cm IVS Diastolic Thickness 1.2 cm 0.6 - 1.0 / 0.6 - 0.9 cm LVPW Diastolic Thickness 1.0 cm 0.6 - 1.0 / 0.6 - 0.9 cm LV Relative Wall Thickness 0.5 RV Internal Dim ED PLAX 2.3 cm LA Volume 60.0 cm??? 18 - 58 / 22 - 52 cm??? LA Volume Index 32.2 cm???/m??? 16 - 28 cm???/m??? M-MODE Aortic Root Diameter MM 2.7 cm LA Systolic Diameter MM 4.0 cm LA Ao Ratio MM 1.5 AV Cusp Separation MM 1.8 cm DOPPLER AV Peak Velocity 138.4 cm/s AV Peak Gradient 7.7 mmHg AV Mean Velocity 86.6 cm/s AV Mean Gradient 3.5 mmHg AV Velocity Time Integral 26.0 cm LVOT Peak Velocity 127.9 cm/s LVOT Peak Gradient 6.5 mmHg LVOT Velocity Time Integral 26.3 cm MV Area PHT 3.5 cm??? Mitral E Point Velocity 103.6 cm/s Mitral A Point Velocity 109.8 cm/s Mitral E to A Ratio 0.9 MV Deceleration Time 215.3 ms MV E' Velocity 9.9 cm/s Mitral E to MV E' Ratio 10.5 FINDINGS Left Ventricle Mildly increased left ventricular wall thickness. Left ventricular cavity size normal. Normal left ventricular systolic function with no obvious regional wall motion abnormalities. Left ventricular ejection fraction is estimated at 55-60 %. Grade 1 diastolic dysfunction. Right Ventricle Normal right ventricular size and function. Right ventricular systolic pressure within normal limits. Right Atrium Normal right atrial size. Left Atrium Mildly increased left atrial volume. Mildly increased left atrial area. Mitral Valve Structurally normal mitral valve. Mitral valve thickened. Mild mitral annular calcification. Mild mitral regurgitation. Aortic Valve Trileaflet aortic valve. No aortic valve stenosis or regurgitation. Tricuspid Valve Structurally normal tricuspid valve. Trace to mild tricuspid regurgitation. Pulmonic Valve Structurally normal pulmonic valve. Pericardium No pericardial effusion. Aorta Normal size aortic root and proximal ascending aorta. CONCLUSIONS Normal LV systolic function Previewed by: Dr. Vineet Escobar MD (Electronically Signed) Final Date: 28 April 2024 14:55
[2024-04-28] MEDS ORDERED: HEPARIN SODIUM,PORCINE 5,000 UNIT/ML 1 ML VIAL SQ SCH (16:00)
[2024-04-28] MEDS ORDERED: ASPIRIN 81 MG PO SCH (21:00)
[2024-04-28] MEDS ORDERED: ATORVASTATIN 40 MG TAB PO SCH (21:00)
== END 2024-04-28 14:52 | disposition home or self-care (01) ==
LOC: EC 12:58 → 3SCARD 16:36 → 4SSUR 04-27 16:40
PROVIDERS: ADMIT Surgery; ATTEND Surgery
DX: K80.12 Calculus of gallbladder with acute and chronic cholecystitis without obstruction (principal); I5A Non-ischemic myocardial injury (non-traumatic); I25.10 Atherosclerotic heart disease of native coronary artery without angina pectoris; E78.5 Hyperlipidemia, unspecified; E03.9 Hypothyroidism, unspecified; R79.89 Other specified abnormal findings of blood chemistry; F17.210 Nicotine dependence, cigarettes, uncomplicated; I25.2 Old myocardial infarction; Z79.890 Hormone replacement therapy; Z79.82 Long term (current) use of aspirin; Z79.899 Other long term (current) drug therapy; Z91.018 Allergy to other foods; Z95.5 Presence of coronary angioplasty implant and graft
CPT/HCPCS: 96361; 96374; 96375; 99285; 36415; 93005; 93306; 88304; 80053 ×2; 82150; 83605; 83690; 83735; 84100; 84484; 85025 ×2; 85610; 85730; 81001; 76705; 47562; G0378 ×4; J2250; J0330; J1644; J2710; J2405 ×2; J2001; J3010; J0295 ×3; J1885 ×2; J2704; C9113 ×2; J1170 ×2; J2371; J0665